=== PATIENT | female | born 1960 | race Caucasian/White ===

== ENCOUNTER → 2016-04-22 | Outpatient (CLI) | payer MEDICAID ==
[~2016-04-22] MED LIST: AMLO10TA2 PO; ASPI1TAB69 PO; LANTUS2P SQ; LEVO100T5 PO; LISI40TA PO; MAGN500T4 PO; METF1000 PO; METH1POW42; NOVOLOGP2 SQ; PRAV20TA2 PO; SITA50 PO; TRIA1CAP PO; TRIAPOW43; VITA500T PO; [UNRECOGNIZED DRUG - CODE]; [UNRECOGNIZED DRUG - CODE] PO
[2016-04-22 12:10] LABS: AUTOMATED NEUTROPHIL # 6.5 TH/MM3 (1.8-7.7); BASOPHIL % 0.5 % (0.0-2.0); EOSINOPHIL # 0.5 TH/MM3 (0-0.4); EOSINOPHIL % 5.3 % (0.0-4.0); HEMATOCRIT 35.9 % (35.0-46.0); HEMO FLAGS DIFF FINAL; LYMPH % 17.5 % (9.0-44.0); LYMPHOCYTE # 1.6 TH/MM3 (1.0-4.8); MEAN CELL VOLUME 94.6 FL (80.0-100.0); MEAN CORPUSCULAR HEMOGLOBIN 32.3 PG (27.0-34.0); MEAN CORPUSCULAR HGB CONC 34.1 % (32.0-36.0); MONO % 6.8 % (0.0-8.0); NEUT % 69.9 % (16.0-70.0); PLATELET COUNT 293 TH/MM3 (150-450); RED BLOOD COUNT 3.79 MIL/MM3 (4.00-5.30); RED CELL DISTRIBUTION WIDTH 12.3 % (11.6-17.2); WHITE BLOOD COUNT 9.3 TH/MM3 (4.0-11.0)
--- NOTE | 2016-04-23 16:35 | EKG ---
Date Performed: 04/22/2016 Time Performed: 11:35:42 PTAGE: 55 years EKG: SINUS BRADYCARDIA BORDERLINE ECG NO PREVIOUS TRACING DOCTOR: Arun Daly Interpretating Date/Time 04/23/2016 16:33:24
== END ==
LOC: CPRE 11:07
PROVIDERS: ATTEND Orthopaedic Surgery
DX: Z01.810 Encounter for preprocedural cardiovascular examination (principal); Z01.812 Encounter for preprocedural laboratory examination; R94.31 Abnormal electrocardiogram [ECG] [EKG]
CPT/HCPCS: 36415; 85025; 93005

== ENCOUNTER → 2016-04-25 | Day surgery (SDC) | payer MEDICAID ==
[~2016-04-25] VITALS: Ht 172.7 cm; Wt 112.0 kg
[~2016-04-25] MED LIST changes: +ACETAMINOPHEN 1000 MG/100 ML VIAL IV ONE; +ACETAMINOPHEN/HYDROcodone 325 MG/5 MG TAB ONE; +BUPIVACAINE/EPINEPHRINE 0.5% PF 30 ML VIAL ONE; +FAMOTIDINE 20 MG/2 ML VIAL IV ONE; +KETOROLAC TROMETHAMINE 30 MG/ML (IVP) VIAL ONE; -METH1POW42; +MIDAZOLAM HCL 5 MG/5 ML VIAL IV ONE; +MIDAZOLAM HCL 5 MG/5 ML VIAL ONE; +MORPHINE SULFATE 4 MG/ML INJ ONE; +PROPOFOL 200 MG/20 ML AMP IV ONE; +SODIUM CHLOR 0.9% 1000 ML INJ 1,000 ML ONE; +TRIAMCINOLONE ACETONIDE 40 MG/ML VIAL ONE; -TRIAPOW43; +VANCOMYCIN HCL 1000 MG ON-CALL/NS 250 ML IV SCH; -[UNRECOGNIZED DRUG - CODE]; +ceFAZolin 1,000 MG/NS 100 ML IV SCH; +ceFAZolin 2 GM PREMIX 50 ML IV SCH; +fentaNYL CITRATE 250 MCG/5 ML AMP ONE
[2016-04-25 10:53] VITALS: BP 159/73; PULSE 64; RESP 18; TEMP 97.6; O2SAT 97
[2016-04-25 14:15] VITALS: PULSE 79
[2016-04-25 15:15] VITALS: TEMP 97.9
[2016-04-25 15:55] VITALS: BP 129/65; PULSE 65; RESP 14; O2SAT 98
--- NOTE | 2016-04-25 16:02 | MP ---
cc: EPHRAIM LEMOS M.D. DATE OF SURGERY: 04/25/2016. PREOPERATIVE DIAGNOSIS: Probable tear medial and lateral meniscus. POSTOPERATIVE DIAGNOSIS: 1. 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 2. Tear, medial meniscus. 3. Tear, lateral meniscus. OPERATIVE PROCEDURE PERFORMED: Arthroscopic chondroplasty medial and lateral compartments and subtotal medial meniscectomy and subtotal lateral meniscectomy. SURGEON: Ephraim Lemos MD. DESCRIPTION OF THE PROCEDURE IN DETAIL: The patient was first placed on the operating table in the supine position. Adequate general anesthesia was administered by Dr. Valera, the anesthesiologist. The left knee was prepped and draped in the usual sterile fashion. A time-out was called and the patient's name, procedure and location were fully confirmed. An Esmarch bandage was used to exsanguinate the left lower extremity and the pneumatic tourniquet was inflated to level of the proximal thigh 300 mmHg. An anterolateral stab wound was made and this portal was used for introduction of the arthroscope and the joint was then distended with lactated Ringer's solution. Eventually an anteromedial portal was created for instrumentation. The systematic examination of the knee joint revealed chondromalacia and degenerative disease of the patellofemoral joint of moderate degree with surrounding synovitis. No fluid within the joint at the time of initial puncture. The medial compartment was entered and showed severe complex tearing of the medial meniscus, and in fact, a good portion of the posterior horn was absent. We then looked at the lateral compartment where there was the peripheral tearing of the lateral meniscus which was approached with a motorized resector and excised. The majority of the meniscus was preserved. The articular surface also appeared to be satisfactorily preserved compared to the severe changes medially. The medial compartment revealed severe subchondral bone exposure with flaking of articular cartilage in addition to the medial meniscal tear. The resector was placed in that compartment and a subtotal medial meniscectomy performed along with a chondroplasty of the medial tibial plateau and corresponding area of the femoral condyle. The surrounding synovium was also excised. After thorough irrigation and aspiration, all instruments were removed and the two stab wounds were closed with simple nylon 3-0. The joint was entered laterally through the same portal and a 22-gauge needle was used to inject 10 cc of 0.5% Marcaine along with 1 cc of Kenalog. Xeroform gauze was applied over both wounds and a bulky dressing applied over this following which the tourniquet was deflated. Examination of the foot revealed adequate return of circulation. Sponge count, needle count and instrument counts were reported to be correct x2. The patient tolerated the procedure well and was sent to the recovery room in satisfactory condition. MD ANDRZEJ Schaffer/BAKARI /2:09 PM /3:46 PM
== END | disposition home or self-care (01) ==
LOC: CSDC 10:01 → EDUNIT# 13:45
PROVIDERS: ATTEND Orthopaedic Surgery
DX: S83.282A Other tear of lateral meniscus, current injury, left knee, initial encounter (principal); S83.242A Other tear of medial meniscus, current injury, left knee, initial encounter; M94.262 Chondromalacia, left knee; E11.9 Type 2 diabetes mellitus without complications; I10 Essential (primary) hypertension
CPT/HCPCS: 01400; 29880; 82948; J1885; J2250; J2270; J3010; J7030; J0131; J3301